=== PATIENT | female | born 1975 | race Caucasian/White ===

== ENCOUNTER 2019-12-20 16:01 | Emergency (ER) | payer OTHER ==
[~2019-12-20] VITALS: Ht 170.2 cm; Wt 133.8 kg
[2019-12-20] MEDS ORDERED: TOPROL XL25 MG PO (16:18)
[2019-12-20] MEDS ORDERED: LEVOTHYROXINE100 MC1 IV (16:19)
[2019-12-20] MEDS ORDERED: EFFER-K 20 MEQ20 ME1 PO (16:19)
[2019-12-20] MEDS ORDERED: LAMICTAL (GREE1 EACH PO (16:19)
[2019-12-20] MEDS ORDERED: LASIX 20 MG TAB20 MG PO (16:19)
[2019-12-20] MEDS ORDERED: METHYLPREDNISOL32 MG PO (16:20)
[2019-12-20] MEDS ORDERED: OMEPRAZOLE 20 M20 M1 PO (16:20)
[2019-12-20] MEDS ORDERED: ZOCOR 10 MG TAB10 M1 PO (16:20)
[2019-12-20] MEDS ORDERED: KLONOPIN0.5 MG PO (16:20)
[2019-12-20] MEDS ORDERED: EMGALITY S120 MG/1 M SUBQ (16:21)
[2019-12-20] MEDS ORDERED: HYDROCODON-ACE1 EAC7 PO (17:24)
[2019-12-20] MEDS ORDERED: KEFLEX500 M1 PO (17:24)
[2019-12-20 17:35] VITALS: BP 139/66
== END 2019-12-20 17:36 | disposition home or self-care (01) ==
LOC: M.ERS 16:01
DX: S90.852A Superficial foreign body, left foot, initial encounter (principal); E03.9 Hypothyroidism, unspecified; Z88.8 Allergy status to other drugs, medicaments and biological substances; Z86.73 Personal history of transient ischemic attack (TIA), and cerebral infarction without residual deficits; W22.8XXA Striking against or struck by other objects, initial encounter; Y93.89 Activity, other specified; Y92.89 Other specified places as the place of occurrence of the external cause; Y99.8 Other external cause status